=== PATIENT | male | born 1950 | race Caucasian/White ===

== ENCOUNTER → 2019-10-23 10:52 | Outpatient (BNVA) | payer MEDICARE, BC, SELFPAY | PROVIDERS: Family Provider Registered Nurse; PCP Registered Nurse; Visit Provider Otolaryngology | DX: H61.91 Disorder of right external ear, unspecified (principal); H91.91 Unspecified hearing loss, right ear; H93.19 Tinnitus, unspecified ear; F17.210 Nicotine dependence, cigarettes, uncomplicated | CPT/HCPCS: 99204; 99214 ==

== ENCOUNTER 2019-12-24 08:22 | Outpatient (CLI) | payer MEDICARE, BC, SELFPAY ==
--- NOTE | 2019-12-24 | CT_ITS ---
WS: [id number] CT HEAD WITH AND WITHOUT CONTRAST HISTORY: VISION CHANGES, OSTEOMA OF EAC, VERTIGO, ALFARO TECHNIQUE: Noncontrast 2.5 mm axial images obtained from the vertex to the skull base. Additional gio ging performed at 2.5 mm axial images status post IV contrast. Bone and soft tissue windows are revie wed. All CT scans at [facility] use at least one of these dose optimization techniques: a utomated exposure control; mA and/or kV adjustment per patient size (includes targeted exams where do se is matched to clinical indication); or iterative reconstruction. CONTRAST: Omnipaque 300; 95 mL IV. DLP: 1289.02 mGy.cm COMPARISON: None available. No acute intracranial hemorrhage, edema or midline shift. Mild atrophy and mild chronic microvascular ischemic changes. No enhancing mass or vascular malformations identified. Dural venous sinuses are normally enhancing. Basilar artery, intracranial carotid arteries and middle cerebral arteries are all ectatic and promin ent. May be on the basis of long-standing hypertension. No aneurysms are identified on this study. Al l the vessels appear patent although there is atherosclerosis. No mass is identified at the cerebello pontine angle. No soft tissue masses along the internal or external auditory canals. There is no soft tissue surrounding the middle ear ossicles. No destruction of the tegmen tympani or significant mast oid disease. No dehiscence is appreciated along the carotid canal. No mass at the optic chiasm or infundibulum. No mass encroaching upon the optic chiasm. Paranasal sinuses as visualized: Clear. Mastoid air cells: Clear. Calvarium and scalp: Intact. CT/CT head wo/w con [id number] IMPRESSION: 1. Mild cerebral atrophy and chronic ischemic disease. 2. No enhancing masses. 3. Dolichoectatic appearance of the basilar artery and the intracranial caroti d arteries. May be due to long-standing hypertension. 4. No enhancing mass. 5. No abnormality noted at the cerebellopontine angles or along the internal o r external auditory canals.
[2019-12-24] MEDS: iohexol 300 mg/mL 100 mL Btl IV (11:34)
== END 2019-12-24 08:23 | disposition home or self-care (01) ==
LOC: RADSHAW 08:28 → CT 09:39
PROVIDERS: PCP Registered Nurse; Visit Provider Registered Nurse
DX: G44.89 Other headache syndrome (principal); H53.9 Unspecified visual disturbance; D16.4 Benign neoplasm of bones of skull and face; R42 Dizziness and giddiness; I25.89 Other forms of chronic ischemic heart disease; G31.89 Other specified degenerative diseases of nervous system
CPT/HCPCS: 70470; 82565; 84520

== ENCOUNTER 2019-12-24 10:05 | Outpatient (CLI) | payer MEDICARE, BC, SELFPAY ==
[2019-12-24 11:18] LABS: Blood Urea Nitrogen 10 mg/dL (8-23); Glomerular Filtration Rate 66.4 mL/min (90-130)
== END 2019-12-24 10:06 | disposition home or self-care (01) ==
PROVIDERS: Visit Provider Registered Nurse
DX: G44.89 Other headache syndrome (principal); H53.9 Unspecified visual disturbance; D16.4 Benign neoplasm of bones of skull and face
CPT/HCPCS: 82565; 84520

== ENCOUNTER 2020-02-04 14:15 | Observation (INO) | payer MEDICARE, BC, SELFPAY ==
[2020-02-04] VITALS (21 sets, daily range): BP systolic 126–137; BP diastolic 78–92; PULSE 6–62; RESP 10–18; TEMP 36.8; O2SAT 93–95; BMI 25.7
[2020-02-04] MEDS: sodium chloride 0.9% 1,000 ML 50 ML IV (15:43)
[2020-02-04] MEDS: diphenhydrAMINE 50 mg Capsule PO (15:43)
[2020-02-04 16:13] LABS: Basophils % 0.5 %; Eosinophils # 0.2 10^3/uL (0.0-0.8); Eosinophils % 2.1 %; Hematocrit 43.8 % (42.0-52.0); Hemoglobin 14.9 g/dL (11.7-16.6); Mean Corpuscular Hemoglobin 31.1 pg (28.0-34.0); Mean Corpuscular Volume 91.4 fL (80-94); Mean Platelet Volume 9.2 fL (7.4-10.4); Monocytes # 0.4 10^3/uL (0.2-0.9); Monocytes % 5.9 %; Neutrophils # 4.8 10^3/uL (1.8-7.7); Neutrophils % 64.1 %; Nucleated Red Blood Cells % 0 %; Platelet Count 207 10^3/cmm (130-400); Red Blood Count 4.79 10^6/uL (4.1-5.3); Red Cell Distribution Width 12.3 % (12.1-15.1); White Blood Count 7.5 10^3/uL (4.0-10.0)
[2020-02-04 16:28] LABS: INR 0.88 (0.8-1.2)
[2020-02-04 16:37] LABS: Blood Urea Nitrogen 8 mg/dL (8-23); Calcium 8.7 mg/dL (8.5-10.5); Carbon Dioxide 24 mmol/L (22-29); Chloride 106 mmol/L (98-107); Creatinine Clr Calc Pharmacy 99.8847; Glomerular Filtration Rate 95.8 mL/min (90-130); Glucose 96 mg/dL (65-115); Osmolality Calculated 288 mOsm/kg (285-295); Sodium 141 mmol/L (136-145)
--- NOTE | 2020-02-04 16:37 | W.PM.OPSUD ---
Surgery/Procedure H&P Update DATE OF PROCEDURE: February 04, 2020 DATE H&P PERFORMED: 01/31/20 H&P UPDATE INFORMATION: I have reviewed H&P completed within last 30 days, I have examined patient prior to procedure and No changes to prior documentation PREOP DIAGNOSIS: PPM KARINA PLANNED PROCEDURE: Operation Date: 02/04/20 16:30 Proposed Procedures p Pacemaker Generator Change(Not Applicable) - Randy Barker MD PATIENT REASSESSED PRIOR TO SEDATION, WITH NO CHANGE NOTED: Yes PHYSICAL EXAM: alert, oriented x 3, clear to auscultation bilaterally and regular rate & rhythm AIRWAY EVAL/ANESTHESIA PLAN: normal airway, see other exam findings, ASA II, Monitored Anesthesia, Local Anesthesia, Risks, benefits & alternatives of sedation and/or procedure discussed and Patient agrees to continue as planned
--- NOTE | 2020-02-04 17:22 | PM.OP ---
Operative Report Date of procedure: February 04, 2020 Pre-op Diagnosis: PPM KARINA Post-op diagnosis: same Procedure Done: Explantation of the old pacemaker generator. Implantation of the new generator Anesthesia: MAC and Local Procedure: PROCEDURE: PACEMAKER REVISION PREOPERATIVE DIAGNOSIS: Pacemaker elective replacement indication. POSTOPERATIVE DIAGNOSIS: Pacemaker elective replacement indication. ESTIMATED BLOOD LOSS: Around 5 milliliters. COMPLICATIONS: None. BRIEF HISTORY: The patient is 69-year-old white male who had a permanent pacemaker implantation for symptomatic bradycardia/atrial fibrillation. The patient was found to have elective replacement indication, during routine office followup evaluation. For further management of patient's condition for the symptomatic bradycardia, the patient required a pacemaker revision. Patient required a dual-chamber pacemaker for symptom relief and the need for AV synchrony The procedure was explained to the patient in detail with the risks and benefits. The risks of bleeding, hematoma, vascular injury, infection and other concomitant complications were explained in detail, which the patient understood well and consented to proceed. PROCEDURES PERFORMED: 1. Explantation of the old pacemaker generator. 2. Implantation of the new generator. The patient brought to the Cardiac Public Health Representative. The left side of the neck and the subclavian area were cleaned and draped in a sterile fashion. 1% Xylocaine was used for local anesthetic agent. A 2 inch long incision was made just below the previous pacemaker scar. By sharp and blunt dissection, the pacemaker pocket was accessed. The old generator was delivered from the pocket. The generator was detached from the lead. The new Medtronic generator was attached to the lead. The pacemaker pocket was copiously irrigated with vancomycin solution. Complete hemostasis was achieved. The lead was positioned behind the generator and the generator was attached to the pectoralis fascia by suturing with 0 Surgilon. Sponge counts were confirmed. The pacemaker pocket was closed in layers. Skin was approximated using 4-0 Vicryl. EXPLANTED DEVICE: Pacemaker Generator: Brand: [place]. Model number: [id number]. Serial number: [id number]. Date of implant: May 12, 2007 Make: [employer] [place] IMPLANTED DEVICES: Ventricular Lead: Date of implantation: May 12, 2007 Model number: [id number] Serial number: [id number] Make: [employer] [place] Atrial lead Date of implantation: May 12, 2007 Model number: Tendril [id number] Serial number: [id number] Make: [employer] [place]. Implanted Generator: Date of implantation : 02/04/2020 Brand: Assurity MRI. Model number: [id number] Serial number: [id number] Make: [employer] [place] Stimulation Threshold: The ventricular sensing was 8.5 millivolts. Ventricular lead impedance was 390 ohms and the pacing threshold was 0.75 volts at 0.4 milliseconds. The atrial sensing was 5.0 millivolts. Atrial lead impedance was 310 ohms and the pacing threshold was 0.75 volts at 0.4 milliseconds. The pacemaker was set for DDDR mode with an upper rate of 130 and a lower rate of 60. Paced AV delay/sensed AV delay-170s/150 +180 ms VIP A pressure dressing was applied over the pacemaker site. The patient was transferred back to medical floor in stable condition. Sponge counts were correct.
--- NOTE | 2020-02-04 18:00 | PC.NURSE ---
PATIENT RECEIVED FROM ALLERGY AND IMMUNOLOGY SPECIALIST FROM JUAN MOLINA. PATIENT WAS NOT WEARING A SHOULDER IMMOBILIZER, WHICH WAS ORDERED. JESSE STATED TO THIS NURSE THAT THE PATIENT WAS JUST A BATTERY CHANGE AND DID NOT REQUIRE A SHOULDER IMMOBILIZER, THAT DR. SENIOR HAD JUST ORDERED THAT PART OF AN ORDER SET.
[2020-02-04] MEDS: apixaban 5 mg Tablet PO (18:44)
--- NOTE | 2020-02-04 19:49 | PC.NURSE ---
Received bedside report from Ina Ga RN. Patient resting in bed. Patient has pressure dressing in place to left upper chest. Patient c/o of mild aching to site. No s/s of bleeding or hematoma formation observed or palpated. Instructed patient on site care. Patient verbalized complete understanding. Assessment completed as documented.
[2020-02-05 03:46] VITALS: BP 142/89; PULSE 60; RESP 18; TEMP 36.7; O2SAT 92
--- NOTE | 2020-02-05 06:00 | ECG_ITS ---
[facility] ED Test Date: 2020-02-05 Pat Name: Adelfo Martinez Department: Room: 105 Gender: Male Director Of Rehabilitation And Wellness: : 1950 Requested By: Randy Barker Order Number: [id number] Janae MD: Randy Barker M.D. Measurements Intervals [place] Rate: 60 P: 146 [place]: 251 QRS: 6 QRSD: 106 T: 11 QT: 421 QTc: 421 Interpretive Statements ELECTRONIC ATRIAL PACEMAKER LOW QRS VOLTAGE IN PRECORDIAL LEADS [QRS DEFLECTION < 1.0 mV IN CHEST LEADS] ABNORMAL RHYTHM ECG No previous ECG available for comparison Electronically Signed On 02-06-2020 0:08:23 CDT by Randy Barker M.D. [email or web address]
[2020-02-05 07:32] VITALS: BP 164/96; PULSE 60; RESP 13; TEMP 37; O2SAT 93
[2020-02-05] MEDS: amlodipine 5 mg Tablet PO (09:15)
[2020-02-05] MEDS: multivitamin therapeutic Tablet 1 TAB PO (09:15)
[2020-02-05] MEDS: apixaban 5 mg Tablet PO (09:16)
[2020-02-05] MEDS: HYDROcodone-acetaminophen 5-325 mg Tablet 1 TAB PO (09:58)
[2020-02-05 12:00] VITALS: BP 125/82; PULSE 64; RESP 18; TEMP 36.8; O2SAT 94
--- NOTE | 2020-02-05 12:59 | PC.CHAP ---
Pastoral Care Encounter/Spiritual Assessment Type of Contact [] Declined production assembly supervisor visit [] Patient/Family/Request visit [] Outpatient visit [] Follow-up visit [] Physician referral [] Code/Alert [x] Routine visit [] Staff referral [] Actively dying [] Patient sleeping [] Family support [] [] Out of room [] Palliative care [] [x] Receiving care in room [] Pre-surgical visit [] Trauma [] Long length of stay [] ICU visit [] Other: Relational/Emotional Strength [x] Patient feels connected with others/family/visitors/staff [] Distress [] Loneliness/isolation [] Abandonment Spirituality of Patient [x] Person of Claire [] Attends Hindu of their Claire [x] Believes in Prayer [] Reads Bible or Catholic materials [] There are Spiritual issues to be addressed Renal Technician Interventions [x] Prayer [x] Active listening [x] Non-anxious presence [x] Spiritual/emotional support [] Crisis/trauma care [x] Spiritual counseling [] Bereavement support [] Provided bereavement packet [] Provided Bible/devotional materials [] Provided toy/stuffed animal, coloring book to patient or family member [] Provided Communion [] Anointing/[place] [] Salvation [x] Completed spiritual assessment [] Other: Impact on Illness or Injury [] Angry [] Fearful [] Anxious [] Often cries [] Exhaustion [] Unable to work [] Unable to attend mandaeism [] Unable to walk/stand [] Unable to read [] Unable to drive [] Unable to eat/drink [] Unable to sleep [] Unable to be with family [] Patient intubated [] Other: Summary Replaced battery, has some bleeding will get to go home when they stop the bleeding, feels good has a good attitude Time spent with patient 10 mins
[2020-02-05 17:00] VITALS: BP 134/96; PULSE 107; RESP 22; TEMP 36.6
[2020-02-05 17:36] VITALS: BP 134/96; PULSE 107; RESP 22; TEMP 36.6
--- NOTE | 2020-02-05 17:57 | PC.NURSE ---
patient discharged home at this time. Discharge instructions given and explained patient verbalized understanding of instructions given. IV dc'd cath intact min bleeding noted patient tolerated well. patient assisted to wheel chair to private vehicle by staff all belongings and discharge instructions in hand.
--- NOTE | 2020-02-06 15:20 | PC.RESP ---
Smoking Cessation information and a schedule of classes sent to patient.
== END 2020-02-05 17:57 | disposition home or self-care (01) ==
LOC: CSU 14:16
PROVIDERS: Admitting Provider Internal Medicine Cardiovascular Disease; PCP Registered Nurse; Visit Provider Internal Medicine Cardiovascular Disease
DX: Z45.018 Encounter for adjustment and management of other part of cardiac pacemaker (principal); I10 Essential (primary) hypertension; I48.91 Unspecified atrial fibrillation; Z86.73 Personal history of transient ischemic attack (TIA), and cerebral infarction without residual deficits; F17.210 Nicotine dependence, cigarettes, uncomplicated
CPT/HCPCS: 12345; 33213; 36415; 80048; 85025; 85610; 93005; 96361; 96365; 96366; 97165; C1769; C1785; G0378; J0690; J2001; J2250; J3010; J7030; J7050; Q0163

== ENCOUNTER → 2020-05-13 09:50 | Outpatient (BNVA) | payer MEDICARE, BC, SELFPAY | PROVIDERS: PCP Registered Nurse; Visit Provider Licensed Practical Nurse | DX: M54.42 Lumbago with sciatica, left side (principal); M54.41 Lumbago with sciatica, right side; G89.29 Other chronic pain; F17.210 Nicotine dependence, cigarettes, uncomplicated | CPT/HCPCS: 99204 ==

== ENCOUNTER 2020-05-15 10:42 | Outpatient (CLI) | payer MEDICARE, BC, SELFPAY ==
--- NOTE | 2020-05-15 11:00 | CT_ITS ---
WS: [id number] CT LUMBAR SPINE TECHNIQUE: Noncontrast CT of the lumbar spine with coronal and sagittal reformatted images. CLINICAL INFORMATION: Low back pain COMPARISON: None. DLP: 1934.[address] scans at [facility] use at least one of these dose optimization techniques: automat ed exposure control; mA and/or kV adjustment per patient size (includes targeted exams where dose is matched to clinical indication); or iterative reconstruction. FINDINGS: Mild lumbar curve convex right. Degenerative disc disease worse at L2-3 with retrolisthesis measuring 5.3 mm. Disc space narrowing worse at L2-3 with loss of disc space height eccentric to the left and subchondral cystic change. Left eccentric osteophyte formation at this level. Grade 1 anterolisthesis L4 on L5 measuring 3 mm. L1-L2: No significant disc bulging. Moderate facet arthropathy. Spinal canal and foramen are patent. L2-L3: Disc osteophyte complex endplate ridging eccentric to the left. Mild central canal stenosis. S light impingement subarticular recess bilaterally. Mild left and no significant right foraminal narro wing. Moderate facet arthropathy. L3-L4: Mild disc bulging with slight effacement of the ventral thecal sac. Narrowing of the subarticu lar recess bilaterally. Moderate facet arthropathy. Foramen are patent. L4-L5: 3 mm anterolisthesis L4 on L5. Disc bulging in combination with facet arthropathy and ligament um flavum hypertrophy results in moderate to severe central canal stenosis. Impingement subarticular recess and traversing L5 nerve roots bilaterally. Mild to moderate right and no significant left fora chanell narrowing. L5-S1: Shallow central disc protrusion with slight effacement of ventral thecal sac. Contact of the t raversing S1 nerve roots.Mild central canal stenosis. Foramen are patent. Mild facet arthropathy Visualized pelvic bony structures: Normal. Paravertebral soft tissues: Normal. CT/CT lumbar spine wo con* [id number] IMPRESSION: 1. Mild lumbar curve. No acute compression. Degenerative disc disease worse at L2-3 with slight retrolisthesis. 2. Slight anterolisthesis L4 on L5 measuring 3 mm. 3. Moderate to severe central canal stenosis L4-5 due to disc bulging with fac et arthropathy and ligament flavum hypertrophy. Impingement traversing L5 nerve roots. Mild to moderate right foraminal narrowing. 4. Shallow central protrusion L5-S1 with slight contact of the traversing S1 n erve roots. Mild central canal stenosis. 5. Disc osteophyte complex L2-3 with mild central canal stenosis and impingeme nt traversing left greater than right L3 nerve roots.
--- NOTE | 2020-05-15 11:15 | XR_ITS ---
WS: [id number] LUMBAR SPINE FLEXION AND EXTENSION TECHNIQUE: 3 views of the lumbar spine: Lateral neutral, flexion, and extension views. CLINICAL INFORMATION: Low back pain COMPARISON: None. FINDINGS: Osteopenia. Grade 1 anterolisthesis L4 on L5 measuring 5.6 mm. Disc space narrowing worse at L2-L3 with endplate degenerative changes. Retrolisthesis L2 on L3 measu ring 6 mm. No acute appearing compression fractures. Moderate facet arthropathy lower lumbar spine. L4-L5 anterolisthesis increases to 9 mm in flexion and decreases to 6 mm with extension. XR/XR lumbar spine f/e only [id number] IMPRESSION: Flexion-extension instability L4-5 described above.
== END 2020-05-15 10:43 | disposition home or self-care (01) ==
LOC: RADWPI 10:47
PROVIDERS: Family Provider Registered Nurse; PCP Registered Nurse; Visit Provider Licensed Practical Nurse
DX: M53.2X6 Spinal instabilities, lumbar region (principal); M48.061 Spinal stenosis, lumbar region without neurogenic claudication; M51.26 Other intervertebral disc displacement, lumbar region; M47.816 Spondylosis without myelopathy or radiculopathy, lumbar region; M51.27 Other intervertebral disc displacement, lumbosacral region; M25.78 Osteophyte, vertebrae
CPT/HCPCS: 72120; 72131

== ENCOUNTER → 2020-05-19 10:16 | Outpatient (BNVA) | payer MEDICARE, BC, SELFPAY | PROVIDERS: Family Provider Registered Nurse; PCP Registered Nurse; Visit Provider Licensed Practical Nurse | DX: M51.17 Intervertebral disc disorders with radiculopathy, lumbosacral region (principal) | CPT/HCPCS: 99213 ==

== ENCOUNTER 2020-07-17 14:54 | Outpatient (CLI) | payer MEDICARE, BC, SELFPAY ==
--- NOTE | 2020-07-17 15:00 | USCV_ITS ---
Adelfo Martinez Age: 70 Gender: M : 1950 Exam Date: 07/17/2020 15:22 Ordering Phys: Randy Barker MD ([email or web address]) Technologist: Sandro Rosales [place]am [place] [facility] [place]ication: AFIB BP: 135 / 90 HR: 59 Rhythm: Sinus Technical Quality: Good MEASUREMENTS (Male / Female) Normal Values 2D ECHO LV Diastolic Diameter PLAX 3.5 cm 4.2 - 5.9 / 3.9 - 5.3 cm LV Systolic Diameter PLAX 2.1 cm IVS Diastolic Thickness 0.8 cm 0.6 - 1.0 / 0.6 - 0.9 cm IVS Systolic Thickness 1.1 cm LVPW Diastolic Thickness 1.0 cm 0.6 - 1.0 / 0.6 - 0.9 cm LVPW Systolic Thickness 1.0 cm LVOT Diameter 2.1 cm LV Ejection Fraction 2D Teich 72.1 % LV Ejection Fraction MOD 2C 44.1 % LV Ejection Fraction 2C AL 44.0 % LA Diameter 4.7 cm LA Width 4.4 cm LA Height 4.9 cm RA Width 3.9 cm RA Height 4.8 cm Aorta at Sinotubular Diameter 3.0 cm M-MODE LV Diastolic Diameter MM 6.3 cm 4.2 - 5.9 / 3.9 - 5.3 cm LV Systolic Diameter MM 4.2 cm LV Ejection Fraction MM Teich 60.2 % IVS Diastolic Thickness MM 1.1 cm 0.6 - 1.0 / 0.6 - 0.9 cm IVS Systolic Thickness MM 1.6 cm LVPW Diastolic Thickness MM 1.4 cm 0.6 - 1.0 / 0.6 - 0.9 cm LVPW Systolic Thickness MM 2.0 cm RV Diastolic Diameter MM 2.0 cm Aortic Annulus Diameter 3.9 cm LA Ao Ratio MM 1.5 MV E Point Septal Separation 0.7 cm DOPPLER AV Peak Velocity 125.0 cm/s LVOT Peak Velocity 115.0 cm/s AV Area Cont Eq vti 3.3 cm squared AV Area Cont Eq pk 3.1 cm squared MV Area PHT 3.3 cm squared Mitral E to A Ratio 0.6 MV E' Velocity 63.0 cm/s TR Peak Velocity 179.7 cm/s TR Peak Gradient 12.9 mmHg TV Peak E Velocity 66.0 cm/s Right Atrial Pressure 3.0 mmHg Pulmonary Artery Systolic Pressu 15.9 mmHg PV Peak Velocity 105.0 cm/s FINDINGS Left Ventricle Normal left ventricular size and systolic function, EF 55 %. No regional wall motion abnormalities. Grade I/IV diastolic dysfunction (abnormal relaxation filling pattern), normal to mildly elevated filling pressures. Mild left ventricular hypertrophy. Right Ventricle The right ventricle is normal in size and function. Right Atrium Catheter/pacemaker wire in the right atrial cavity. Left Atrium The left atrium is normal in size. Mitral Valve Thickened mitral valve. Mild mitral valve regurgitation. Aortic Valve Thickened aortic valve. Tricuspid Valve No gross abnormalities noted Pulmonic Valve No gross abnormalities noted Pericardium Normal pericardium without effusion. Aorta Normal aortic annulus size. CONCLUSIONS Normal left ventricular size and systolic function, EF 55 %. No regional wall motion abnormalities. Grade I/IV diastolic dysfunction (abnormal relaxation filling pattern), normal to mildly elevated filling pressures. Mild left ventricular hypertrophy. Thickened mitral valve. Mild mitral valve regurgitation. Thickened aortic valve. Pacemaker wire in the right atrium right ventricle There is no pericardial effusion. There are no intracardiac masses. No previous study is available for comparison. Dr Randy Barker MD [facility] (Electronically Signed) Final Date: 17 July 2020 21:17 S
== END 2020-07-17 14:55 | disposition home or self-care (01) ==
PROVIDERS: PCP Registered Nurse; Visit Provider Internal Medicine Cardiovascular Disease
DX: I48.11 Longstanding persistent atrial fibrillation (principal); I08.0 Rheumatic disorders of both mitral and aortic valves
CPT/HCPCS: 81003; 93306

== ENCOUNTER 2020-11-24 15:04 | Outpatient (CLI) | payer MEDICARE, BC, SELFPAY ==
--- NOTE | 2020-11-24 15:14 | US_ITS ---
WS: [id number] TESTICULAR ULTRASOUND HISTORY: PAIN IN BOTH TESTICLES/WEAK URINARY STREAM COMPARISON: None available. TECHNIQUE: Real-time and color Doppler imaging or utilized to perform a testicular ultrasound. Right testicle: 4.5 cm x 2.4 cm x 1.8 cm. Normal size with mild coarsened echotexture. No mass or increased vascularity. Normal color Doppler is present throughout. Systolic and diastolic velocities are both present. No significant hydrocele. Right epididymis: Mildly thickened epididymis. No increased vascularity. Left testicle: 4.4 cm x 2.2 cm x 2.2 cm. Normal size and echogenicity. No mass or torsion. Normal color Doppler is present throughout. Systolic and diastolic velocities are both present. No significant hydrocele. Left epididymis: Thickened epididymis. Varices are not significantly dilated. US/US scrotum [id number] IMPRESSION: 1. No testicular mass or torsion. 2. Mild chronic thickening of each epididymis. No evidence for dilated varicoc eles on this examination.
== END 2020-11-24 15:05 | disposition home or self-care (01) ==
LOC: RAD 15:08
PROVIDERS: PCP Registered Nurse; Visit Provider Registered Nurse
DX: R39.12 Poor urinary stream (principal); N50.811 Right testicular pain; N50.812 Left testicular pain
CPT/HCPCS: 76870

== ENCOUNTER → 2020-12-26 09:08 | Outpatient (BNVA) | payer MEDICARE, BC, SELFPAY | PROVIDERS: PCP Registered Nurse; Visit Provider Urology | DX: N40.1 Benign prostatic hyperplasia with lower urinary tract symptoms (principal); N50.819 Testicular pain, unspecified | CPT/HCPCS: 81003 ==

== ENCOUNTER → 2021-05-19 08:43 | Outpatient (BNVA) | payer MEDICARE, BC, SELFPAY | PROVIDERS: PCP Registered Nurse; Visit Provider Urology | DX: N40.1 Benign prostatic hyperplasia with lower urinary tract symptoms (principal) | CPT/HCPCS: 81003 ==

== ENCOUNTER 2021-06-18 06:00 | Outpatient (RCR) | payer MEDICARE, BC, SELFPAY | END 2021-07-14 23:59 | disposition home or self-care (01) | LOC: MPT 06:00 | PROVIDERS: PCP Registered Nurse; Referring Provider Registered Nurse; Visit Provider Registered Nurse | DX: M54.51 Vertebrogenic low back pain (principal) | CPT/HCPCS: 97110; 97140; 97162; G0283 ==

== ENCOUNTER 2021-07-15 06:00 | Outpatient (RCR) | payer MEDICARE, BC, SELFPAY | END 2021-08-14 23:59 | disposition home or self-care (01) | LOC: MPT 06:00 | PROVIDERS: PCP Registered Nurse; Referring Provider Registered Nurse; Visit Provider Registered Nurse | DX: M54.51 Vertebrogenic low back pain (principal) | CPT/HCPCS: 97110; 97140 ==

== ENCOUNTER → 2022-04-12 11:15 | Outpatient (BNVA) | payer MEDICARE, BC, SELFPAY | PROVIDERS: PCP Family Medicine; Visit Provider Internal Medicine Cardiovascular Disease | DX: I48.11 Longstanding persistent atrial fibrillation (principal); Z95.0 Presence of cardiac pacemaker; I10 Essential (primary) hypertension; Z79.01 Long term (current) use of anticoagulants; F17.210 Nicotine dependence, cigarettes, uncomplicated | CPT/HCPCS: 99213; 99214 ==

== ENCOUNTER → 2022-05-28 10:31 | Outpatient (BNVA) | payer MEDICARE, BC, SELFPAY | PROVIDERS: PCP Family Medicine; Visit Provider Internal Medicine Cardiovascular Disease | DX: Z45.010 Encounter for checking and testing of cardiac pacemaker pulse generator [battery] (principal) | CPT/HCPCS: 93280 ==

== ENCOUNTER → 2022-08-13 11:18 | Outpatient (BNVA) | payer MEDICARE, BC, SELFPAY | PROVIDERS: PCP Family Medicine; Visit Provider Internal Medicine | DX: G45.9 Transient cerebral ischemic attack, unspecified (principal); I10 Essential (primary) hypertension; I48.11 Longstanding persistent atrial fibrillation; Z79.01 Long term (current) use of anticoagulants | CPT/HCPCS: 80048; 83880 ==

== ENCOUNTER → 2022-09-30 15:55 | Outpatient (BNVA) | payer MEDICARE, BC, SELFPAY | PROVIDERS: PCP Nurse Practitioner Family; Visit Provider Urology | DX: N40.1 Benign prostatic hyperplasia with lower urinary tract symptoms (principal) | CPT/HCPCS: 51798; 81003; 99213 ==

== ENCOUNTER 2024-05-03 14:54 | Outpatient (CLI) | payer MEDICARE, BC, SELFPAY ==
[2024-05-03 15:24] LABS: Basophils # 0.1 10^3/uL (0.0-0.1); Basophils % 0.7 %; Eosinophils # 0.1 10^3/uL (0.0-0.8); Eosinophils % 1.5 %; Hematocrit 46.7 % (37-53); Lymphocytes # 2.3 10^3/uL (0.8-4.8); Lymphocytes % 25.9 %; Mean Corpuscular HGB Conc 35.1 g/dL (30-55); Mean Corpuscular Hemoglobin 31.9 pg (27-33); Mean Corpuscular Volume 90.9 fl (82-101); Mean Platelet Volume 9.2 fL (7.4-10.4); Monocytes # 0.6 10^3/uL (0.2-0.9); Monocytes % 7.1 %; Neutrophils # 5.67 10^3/uL (1.8-7.7); Neutrophils % 64.5 %; Nucleated Red Blood Cells % 0 %; Platelet Count 231 10^3/cmm (157-399); Red Blood Count 5.14 10^6/uL (3.85-5.65); Red Cell Distribution Width 12.6 % (12.1-15.1); White Blood Count 8.79 10^3/uL (3.29-11.43)
[2024-05-03 15:28] LABS: Bilirubin Urine Negative (Negative); Blood Urine Negative (Negative); Glucose Urine UA Trace (Normal); Ketones Urine Negative (Negative); Leukocyte Esterase Urine 3+ (Negative); Nitrate Urine Negative (Negative); Protein Urine Negative (Negative); Specific Gravity, Urine 1.015 (1.005-1.030); Urine Appearance Cloudy (CLEAR); Urine Color Yellow (Yellow); pH Urine 6.5 (5-7)
[2024-05-03 15:31] LABS: Bacteria Urine None Seen /hpf; RBC Urine 0-2 /hpf (0-2); Squamous Epithelial Cell Urine 0-5 /hpf (0-5); WBC Urine 21-50 /hpf (0-5)
[2024-05-03 15:39] LABS: Add Urine Culture? Yes
[2024-05-03 15:53] LABS: Alanine Aminotransferase 36 U/L (0-41); Albumin Level 4.4 g/dL (3.5-5.2); Alkaline Phosphatase 125 U/L (40-130); Anion Gap 14.5 (5-19); Aspartate Amino Transferase 22 U/L (0-40); Blood Urea Nitrogen 9 mg/dL (8-23); Calcium 8.7 mg/dL (8.5-10.5); Carbon Dioxide 27 mmol/L (22-29); Chloride 105 mmol/L (98-107); Globulin 2.6 g/dL (1.3-4.6); Glucose 114 mg/dL (65-115); Osmolality Calculated 296 mOsm/kg (285-295); Potassium 3.5 mmol/L (3.5-5.1); Sodium 143 mmol/L (136-145); Thyroid Stimulating Hormone 1.01 uIU/mL (0.27-4.20); Total Bilirubin 0.4 mg/dL (0.15-1.2)
[2024-05-04 11:24] LABS: Treponema pallidum AB Immuno NEGATIVE (NEGATIVE)
== END 2024-05-03 14:55 | disposition home or self-care (01) ==
LOC: LAB 14:56
PROVIDERS: PCP Nurse Practitioner Family; Visit Provider Specialist
DX: R42 Dizziness and giddiness (principal)
CPT/HCPCS: 80053; 81001; 84443; 85025; 86780

== ENCOUNTER → 2025-03-29 10:10 | Outpatient (BNVA) | payer MEDICARE, SELFPAY | PROVIDERS: PCP Nurse Practitioner Family; Visit Provider Dermatology | DX: L57.8 Other skin changes due to chronic exposure to nonionizing radiation (principal); D22.5 Melanocytic nevi of trunk; L81.4 Other melanin hyperpigmentation; L82.1 Other seborrheic keratosis; Z85.828 Personal history of other malignant neoplasm of skin; Z08 Encounter for follow-up examination after completed treatment for malignant neoplasm; Z85.820 Personal history of malignant melanoma of skin; L57.0 Actinic keratosis; D48.5 Neoplasm of uncertain behavior of skin | CPT/HCPCS: 11102; 17004; 99203 ==

== ENCOUNTER → 2025-04-18 12:37 | Outpatient (BNVA) | payer MEDICARE, SELFPAY | PROVIDERS: PCP Nurse Practitioner Family; Visit Provider Dermatology | DX: C44.622 Squamous cell carcinoma of skin of right upper limb, including shoulder (principal); L57.0 Actinic keratosis | CPT/HCPCS: 11603; 12032; 17000 ==

== ENCOUNTER → 2025-04-26 09:26 | Outpatient (BNVA) | payer MEDICARE, SELFPAY | PROVIDERS: PCP Nurse Practitioner Family; Visit Provider Dermatology | DX: T81.31XA Disruption of external operation (surgical) wound, not elsewhere classified, initial encounter (principal); X58.XXXA Exposure to other specified factors, initial encounter | CPT/HCPCS: 99213 ==

== ENCOUNTER → 2025-07-01 08:35 | Outpatient (BNVA) | payer MEDICARE, SELFPAY | PROVIDERS: PCP Nurse Practitioner Family; Visit Provider Dermatology | DX: D18.01 Hemangioma of skin and subcutaneous tissue (principal); L72.0 Epidermal cyst; L57.8 Other skin changes due to chronic exposure to nonionizing radiation; Z85.828 Personal history of other malignant neoplasm of skin; L57.0 Actinic keratosis | CPT/HCPCS: 17000; 99213 ==